=== PATIENT | male | born 1980 | race Caucasian/White ===

== ENCOUNTER → 2025-03-05 | Outpatient (CLI) | payer BC ==
[~2025-03-05] MED LIST: ACYC-58 PO; CARI250T PO; CEFAZOLIN SODIUM 1000MG/VIAL ONE; CYCL5TAB3 PO; DOLU1TAB2 PO; FENTANYL CITRATE/PF 50MCG/ML 5ML VIAL ONE; GLYCOPYRROLATE 0.2 MG/ML 2ML VIAL ONE; HYDROMORPHONE HCL/PF 1MG/ML INJ ONE; MELO-106 PO; METOCLOPRAMIDE HCL 10MG/2ML VIAL ONE; MIDAZOLAM HCL 2 MG/2 ML VIAL ONE; NEOSTIGMINE METHYLSULFATE 1MG/ML 10 ML VIAL ONE; ONDANSETRON HCL 4MG/2ML INJ ONE; PANT40TA51 PO; PROPOFOL 200MG/20ML VIAL IV ONE; ROCURONIUM BROMIDE 10MG/ML VIAL 5ML IV ONE; ZOLP5TAB2 PO
== END | disposition home or self-care (01) ==
LOC: MRI 09:18
PROVIDERS: ATTEND Physician Assistant Medical
DX: M51.370 Other intervertebral disc degeneration, lumbosacral region with discogenic back pain only (principal); M51.27 Other intervertebral disc displacement, lumbosacral region; M47.817 Spondylosis without myelopathy or radiculopathy, lumbosacral region; M48.07 Spinal stenosis, lumbosacral region; M79.604 Pain in right leg
CPT/HCPCS: 72148

== ENCOUNTER 2025-03-08 10:35 | Inpatient (IN) | payer BC ==
[~2025-03-08] VITALS: Ht 167.6 cm; Wt 63.5 kg
[~2025-03-08 10:35] MED LIST changes: -CEFAZOLIN SODIUM 1000MG/VIAL ONE; -FENTANYL CITRATE/PF 50MCG/ML 5ML VIAL ONE; +GLYCOPYRROLATE 0.2 MG/ML 2ML VIAL IV ONE; -GLYCOPYRROLATE 0.2 MG/ML 2ML VIAL ONE; -HYDROMORPHONE HCL/PF 1MG/ML INJ ONE; -METOCLOPRAMIDE HCL 10MG/2ML VIAL ONE; -MIDAZOLAM HCL 2 MG/2 ML VIAL ONE; -NEOSTIGMINE METHYLSULFATE 1MG/ML 10 ML VIAL ONE; -ONDANSETRON HCL 4MG/2ML INJ ONE; -PROPOFOL 200MG/20ML VIAL IV ONE; -ROCURONIUM BROMIDE 10MG/ML VIAL 5ML IV ONE
[2025-03-08] MEDS ORDERED: LIDOCAINE HCL/EPINEPHRINE 1%-EPI 1:100,000 20ML VIAL ONE (10:51)
[2025-03-08] MEDS ORDERED: THROMBIN (BOVINE) 5000 UNITS/VIAL TOP ONE (10:51)
[2025-03-08] MEDS ORDERED: GENTAMICIN SULF 40MG/ML 2ML VIAL ONE (10:51)
[2025-03-08 11:03] LABS: CLARITY URINE CLEAR (CLEAR); COLOR URINE YELLOW (YELLOW); GLUCOSE URINE NEGATIVE (NEGATIVE); KETONES URINE NEGATIVE (NEGATIVE); LEUKOCYTE ESTERASE URINE NEGATIVE (NEGATIVE); NITRITE URINE NEGATIVE (NEGATIVE); OCCULT BLOOD URINE NEGATIVE (NEGATIVE); PH URINE 6.5 (4.5-8.0); PROTEIN URINE NEGATIVE (NEGATIVE); SPECIFIC GRAVITY URINE 1.018 (1.005-1.030); UROBILINOGEN URINE 0.2 E.U./dL (0.2-1.0)
[2025-03-08 11:20] LABS: BASOPHILS % 0.9 % (0.0-2.0); EOSINOPHILS % 4.6 % (0.0-5.0); HEMATOCRIT. 47.7 % (42.0-52.0); HEMOGLOBIN. 16.0 g/dL (14.0-18.0); LYMPHOCYTES % 33.0 % (20.0-50.0); MEAN PLATELET VOLUME 8.9 fl (7.4-10.4); MONOCYTES % 7.5 % (2.0-8.0); NEUTROPHILS % 54.0 % (40.0-76.0); PLATELET 219 x1000/uL (130-400); RED BLOOD CELL COUNT 4.80 mill/uL (4.7-6.1); RED CELL DISTRIBUTION WIDTH 13.3 % (11.6-14.6)
[2025-03-08 11:30] LABS: INR 1.1
[2025-03-08] MEDS ORDERED: LACTATED RINGERS 1,000 ML IV SCH (11:30)
[2025-03-08 11:34] LABS: CREATININE 1.5 mg/dL (0.6-1.3); UREA NITROGEN BLOOD 17.0 mg/dL (9-23)
[2025-03-08] MEDS ORDERED: HYDRALAZINE 20MG/ML VIAL IV PRN (14:15)
[2025-03-08] MEDS ORDERED: NALOXONE HCL 0.4MG/ML VIAL IV PRN (14:30)
[2025-03-08] MEDS ORDERED: FAMOTIDINE 20MG/2ML VIAL IV ONE (16:06)
[2025-03-08] MEDS ORDERED: GLYCOPYRROLATE 0.2 MG/ML 2ML VIAL IV SCH (16:30)
[2025-03-08] MEDS ORDERED: ONDANSETRON HCL 4MG/2ML INJ IV PRN ×2 (16:30→19:15)
[2025-03-08] MEDS ORDERED: NALOXONE HCL 0.4MG/ML 1ML VIAL IV PRN (16:30)
[2025-03-08] MEDS ORDERED: LABETALOL 5MG/ML 4ML INJ IV PRN (16:30)
[2025-03-08] MEDS: MEPERIDINE HCL/PF 25MG/ML CPJ IV PRN (16:34)
[2025-03-08] MEDS: HYDROMORPHONE HCL/PF 1MG/ML INJ IV PRN (16:43)
[2025-03-08] MEDS ORDERED: MAGNESIUM/ALUMINUM HYDROXIDE/SIMETHICONE 30ML UDC PO PRN (17:00)
[2025-03-08] MEDS ORDERED: IPRATROPIUM/ALBUTEROL 0.5-3(2.5)MG/3ML NEB HHN PRN ×2 (17:00→23:00)
[2025-03-08] MEDS ORDERED: GUAIFENESIN 200MG/10ML SUGAR FREE UDC PO PRN (17:00)
[2025-03-08] MEDS ORDERED: ACETAMINOPHEN 325MG TABLET PO PRN (17:00)
[2025-03-08] MEDS ORDERED: CLONIDINE 0.1MG TABLET PO PRN (17:00)
[2025-03-08] MEDS: DEXT 5%/LACTATED RINGERS 1,000 ML IV SCH (17:08)
[2025-03-08] MEDS ORDERED: ACYCLOVIR 400 MG TABLET PO SCH (17:30)
[2025-03-08] MEDS ORDERED: HYDRALAZINE 10 MG in SODIUM CHLORIDE 0.9% 49.5 ML IV PRN (18:15)
[2025-03-08] MEDS: MORPHINE SULFATE 4 MG/ML INJ (FOR IV/IM USE) IV PRN (18:59)
[2025-03-08 20:00] VITALS: BP 112/55; PULSE 56; RESP 18; TEMP 36; O2SAT 95
[2025-03-08] MEDS: CARISOPRODOL 350 MG TABLET PO PRN (20:28)
[2025-03-08] MEDS: ACYCLOVIR 400 MG TABLET PO SCH (21:11)
[2025-03-08] MEDS: CEFAZOLIN 1000MG PREMIX 50ML IV SCH (21:11)
[2025-03-08] MEDS ORDERED: CEFAZOLIN SODIUM 1000MG/VIAL IV SCH (22:00)
[2025-03-08 23:57] VITALS: BP 112/55; PULSE 56; RESP 18; TEMP 36.0288
[2025-03-09 04:00] VITALS: BP 140/57; PULSE 80; RESP 20; TEMP 36.2; O2SAT 97
[2025-03-09] MEDS: PANTOPRAZOLE 40MG DR TABLET PO SCH (06:48)
[2025-03-09] MEDS: OXYCODONE HCL/ACETAMINOPHEN 5/325MG TABLET PO PRN (06:50)
[2025-03-09 08:00] VITALS: BP 133/61; PULSE 76; RESP 18; TEMP 37.4; O2SAT 98
[2025-03-09] MEDS: CYCLOBENZAPRINE 10MG TABLET PO PRN ×2 (09:24→20:47)
[2025-03-09] MEDS: DOCUSATE SODIUM 100MG CAPSULE PO PRN (09:24)
[2025-03-09] MEDS ORDERED: MORPHINE SULFATE 10 MG/ML INJ (NOT FOR IM USE) IV PRN (11:15)
[2025-03-09 12:00] VITALS: BP 149/72; PULSE 69; RESP 18; TEMP 37.3; O2SAT 98
[2025-03-09] MEDS: CARISOPRODOL 350 MG TABLET PO PRN (12:46)
[2025-03-09 16:00] VITALS: BP 138/71; PULSE 68; RESP 18; TEMP 37.4; O2SAT 97
[2025-03-09 20:00] VITALS: BP 105/48; PULSE 55; RESP 18; TEMP 36.8; O2SAT 97
[2025-03-10 08:00] VITALS: BP 154/73; PULSE 62; RESP 18; TEMP 36.1; O2SAT 97
[2025-03-10] MEDS: PREDNISONE 20MG TABLET PO NR (10:48)
[2025-03-10] MEDS ORDERED: DIAZEPAM 5 MG TABLET PO PRN (11:45)
[2025-03-10 12:00] VITALS: BP 152/60; PULSE 69; RESP 18; TEMP 36.2; O2SAT 98
[2025-03-10] MEDS ORDERED: DEXAMETHASONE 4MG TABLET PO SCH (12:00)
[2025-03-10] MEDS ORDERED: METH4TAB95 MT (15:54)
[2025-03-10 16:00] VITALS: BP 144/57; PULSE 64; RESP 18; TEMP 36.3; O2SAT 98
[2025-03-10 18:42] VITALS: BP 144/57; PULSE 64; RESP 18; TEMP 97.4
[2025-03-10] MEDS ORDERED: CYCLOBENZAPRINE 10MG TABLET PO PRN (21:00)
[2025-03-11] MEDS ORDERED: FAMOTIDINE 20MG TABLET PO SCH (09:00)
== END 2025-03-10 20:15 | disposition home or self-care (01) | DRG 519 ==
LOC: OR 10:35 → MICUSO 15:33 → 6EST 17:39
PROVIDERS: ADMIT Neurological Surgery; ATTEND Neurological Surgery
PROC: 0SB40ZZ Excision of Lumbosacral Disc, Open Approach (ICD-10-PCS; principal; 2025-03-08)
PROC: 01NB0ZZ Release Lumbar Nerve, Open Approach (ICD-10-PCS; 2025-03-08)
PROC: 01NR0ZZ Release Sacral Nerve, Open Approach (ICD-10-PCS; 2025-03-08)
DX: M51.17 Intervertebral disc disorders with radiculopathy, lumbosacral region (principal); G82.20 Paraplegia, unspecified; N17.9 Acute kidney failure, unspecified; B00.9 Herpesviral infection, unspecified; G89.4 Chronic pain syndrome
CPT/HCPCS: 36415; 71045; 72100; 76000; 80048; 81003; 85025; 86850; 86900; 88304; 88311; 93005; 93970; 95925; 95926; 95928; 95929; 97116; 97162; 97166; 97530; 97535; J0690; J1171; J1308; J1580; J2004; J2175; J2270; J3490; J7121; J7512